=== PATIENT | female | born 1995 | race Caucasian/White ===

== ENCOUNTER 2018-07-14 13:04 | Day surgery (SDC) | payer OTHER ==
[2018-07-14 16:48] VITALS: BMI 37.2
--- NOTE | 2018-07-14 18:05 | PRG ---
DATE OF SERVICE: 07/14/2018 TIME OF EVALUATION: 1420 to 1435 hours. LOCATION: Labor and Delivery in triage A. REASON FOR EVALUATION: This is a patient of Dr. Grant, who is here for pelvic cramps and possible ea rly contractions. HISTORY OF PRESENT ILLNESS: In brief, this is a 23-year-old G1, P0, who is at 38 weeks and 5 days [address] o sees Dr[address] Grant, who last saw him last week and she was about 2 cm at that time. She comes now with increasing pelvic spasms concerning for contractions. She has no vaginal bleeding or ruptured membr anes. She has good movement. She has no other issues. REVIEW OF SYSTEMS: Complete review of systems was checked and otherwise negative unless specified in the HPI. It is important to note that on her review of systems; however, we did document and unc[place] red that she had a history of herpes simplex virus, but she is currently on Valtrex suppression as aidan ortiz has no current symptoms. PAST MEDICAL HISTORY: Otherwise, negative. SURGERIES: Tonsils and adenoids. OB HISTORY: She is a G1, P0. ALLERGIES: None. PHYSICAL EXAMINATION: VITAL SIGNS: Patient's blood pressure is 128/79, pulse is 80s, respirations are 18 and unlabored, aidan ortiz is afebrile. BMI is 37.2. GENERAL: She is in no acute distress. ABDOMEN: Soft and nontender and size consistent with dates. MUSCULOSKELETAL: Cervical examination performed by Iliana, the patient's nurse, was 1.5-2 cm dila evita, about 50% effaced, -1 station, no evidence of rupture. External monitor shows category 1 strip with moderate variability and accelerations. There are no pathological decelerations. There is no real contraction pattern on tocodynamometer. hear t tones are reassuring. ASSESSMENT: This is a 23-year-old G1, P0 at 38 weeks and 5 days with [place] contractions. Th ere is no evidence of PIH for complication. PLAN: 1. No acute need for intervention at this time. 2. I have seen and evaluated the patient at bedside. 3. No acute concerns at this time. 4. The patient is doing well and we have running nonstress test which is reassuring. 5. I have advised the patient to keep her followup appointment with Dr. Grant. 6. I also provided her with Labor and Delivery details.
== END 2018-07-14 14:45 | disposition home or self-care (01) ==
LOC: L&D/OP 13:04
PROVIDERS: ATTEND Family Medicine
DX: O47.1 False labor at or after 37 completed weeks of gestation (principal); Z3A.38 38 weeks gestation of pregnancy
CPT/HCPCS: 99283

== ENCOUNTER 2018-07-23 07:03 | Day surgery (SDC) | payer OTHER ==
[2018-07-23 07:34] VITALS: BP 122/59; TEMP 99.2; BMI 37.2
--- NOTE | 2018-07-23 09:39 | PDOC.EVN ---
Event Note - Event Note Event Note: @ 929: I was asked to place triage orders for Ms Ricci. First arrived with Dr Azevedo. Please see Dr Grant's triage bnotes who saw this patient. these orders inputed by me as courtesy
== END 2018-07-23 09:55 | disposition home or self-care (01) ==
LOC: L&D/OP 07:03
PROVIDERS: ATTEND Family Medicine
DX: O47.9 False labor, unspecified (principal); O99.89 Other specified diseases and conditions complicating pregnancy, childbirth and the puerperium; R10.9 Unspecified abdominal pain
CPT/HCPCS: 99283

== ENCOUNTER 2018-07-24 14:42 | Inpatient (IN) | payer OTHER ==
[2018-07-24] MEDS ORDERED: Sodium Chloride 0.9% (PF) 10 ML VIAL ONE (15:00)
[2018-07-24] MEDS ORDERED: Bupivacaine 0.25% HCL 30 ML VIAL ONE (15:00)
[2018-07-24 15:19] VITALS: BMI 37.2
--- NOTE | 2018-07-24 16:21 | PDOC.LDHP ---
Labor and Delivery H&P Chief complaint: loss of fluid HPI: 23 y/o G1 at 40w0d, patient of Dr. Grant, presents with ctx. Is scheduled for induction tonight. Denies VB, LOF, or decreased FM. ROS neg for HEENT, cv, pulm, gi, gu, neuro, psych, skin, musculoskeletal or constitutional symptoms other than mentioned above. OB History Details: None Current complications: none Past Medical History: HSV Current medications: pre- vitamins Previous surgical history: none Allergies/Adverse Reactions: Allergies Allergy/AdvReac Type Severity Reaction Status Date / Time No Known Allergies Allergy Verified 07/24/18 15:19 Social history: tobacco use (tobacco use early in but quit) - Physical Exam Vital signs reviewed and normal: yes General: NAD, resting Lungs: nonlabored breathing Abdomen: gravid Extremeties: no edema FHT: category 1 (140s, mod variability, + accels, no decels) [place] contractions every: 3 mins - Vaginal Exam cm dilated: 2 Effacement: 90% Station: -2 - OB Labs GBS: positive Additional Labs: Amnisure negative - Assessment L&D Assessment: term patient in labor - Plan Plan: admit to L&D, GBS antibiotic prophylaxis, informed consent obtained, anesthesia consult for pain management (if desired) -: Dr. Grant notified.
[2018-07-24] MEDS ORDERED: Acetaminophen 500 MG TAB PO PRN (19:08)
[2018-07-24] MEDS ORDERED: Zolpidem Tartrate 5 MG TAB PO PRN (19:08)
[2018-07-24] MEDS ORDERED: Ondansetron HCl/PF 4 MG/2 ML Vial IVP PRN (19:08)
[2018-07-24] MEDS ORDERED: Promethazine HCl 25 MG/ML VIAL IM PRN (19:08)
[2018-07-24] MEDS ORDERED: Penicillin G Potassium 5 MILL.UNITS VIAL ONE (19:09)
[2018-07-24] MEDS ORDERED: Diphenoxylate HCl/Atropine Tablet PO PRN ×2 (19:10)
[2018-07-24] MEDS ORDERED: Methylergonovine 0.2 MG/ML VIAL IM PRN (19:10)
[2018-07-24] MEDS ORDERED: Ibuprofen 800 MG TAB PO PRN (19:10)
[2018-07-24] MEDS ORDERED: Misoprostol 200 MCG TAB PR PRN (19:10)
[2018-07-24] MEDS ORDERED: Carboprost 250 MCG/ML AMP IM PRN (19:10)
[2018-07-24] MEDS ORDERED: Lidocaine 1% (PF) 30 ML VIAL SC PRN (19:10)
[2018-07-24] MEDS ORDERED: HYDROcodone/Acetaminophen 5/325 mg Tablet PO PRN ×2 (19:10)
[2018-07-24] MEDS ORDERED: NS / Oxytocin 40 units/1000ml 1,000 ML IV PRN (19:10)
[2018-07-24] MEDS ORDERED: NS w/ Oxytocin 10 units 500 ML IV SCH (19:15)
[2018-07-24] MEDS ORDERED: Penicillin G Potassium 5 MILL.UNITS in Sodium Chloride 0.9% 100 ML IVPB SCH (19:15)
[2018-07-24 19:23] LABS: Hemoglobin 11.1 g/dL (12.0-16.0); Mean Corpuscular HGB CONC 32.4 g/dL (32.0-36.0); Mean Corpuscular Hemoglobin 27.5 pg (27.0-31.0); Mean Corpuscular Volume 84.8 fL (78.0-98.0); Mean Platelet Volume 7.5 fL (7.4-10.4); Platelet Count 388 thou/uL (130-400); RBC Distribution Width 13.5 % (11.5-14.5); Red Blood Cell (RBC) Count 4.06 mill/uL (4.20-5.40); White Blood Cell (WBC) Count 28.9 thou/uL (4.8-10.8)
[2018-07-24 19:48] LABS: Syphilis Antibody Nonreactive (Nonreactive); Syphilis Antibody Index 0.09 S/CO (<1.00 Non-Reactive)
[2018-07-24 19:49] LABS: HBSAg Index 0.21 S/CO (0-0.99); Hep B Surf Ag Non-Reactive S/CO (NonReactive)
[2018-07-24] MEDS: Penicillin G 2.5 MILL.units 2.5 MILL.UNITS in Premix Bag 1 BAG IVPB SCH (23:36)
[2018-07-24] MEDS: Lactated Ringer's 1,000 ML IV SCH (23:36)
[2018-07-25] MEDS: Butorphanol Tartrate 1 MG/ML VIAL SLOW IVP PRN ×2 (01:12→03:04)
[2018-07-25] MEDS: Penicillin G 2.5 MILL.units 2.5 MILL.UNITS in Premix Bag 1 BAG IVPB SCH ×2 (04:04→07:55)
[2018-07-25] MEDS ORDERED: Bupivacaine 0.5% 20 ML, fentaNYL Citrate/PF 400 MCG in Sodium Chloride 0.9% 72 ML EPIDURAL SCH (04:15)
[2018-07-25] MEDS ORDERED: DISCONTINUE ALL PREVIOUS NARCOTICS FS SCH (04:15)
[2018-07-25] MEDS: Lactated Ringer's 1,000 ML IV SCH ×2 (05:47→09:21)
[2018-07-25] MEDS ORDERED: ePHEDrine/0.9% NaCl/PF SYRINGE 50 mg/10 ml SLOW IVP PRN (06:05)
[2018-07-25] MEDS ORDERED: Promethazine HCl 25 MG/ML VIAL IM PRN (06:05)
[2018-07-25] MEDS ORDERED: Lactated Ringer's 500 ML IV PRN (06:05)
[2018-07-25] MEDS ORDERED: Acetaminophen 325 MG TAB PO PRN (06:05)
[2018-07-25] MEDS ORDERED: Naloxone HCl 0.4 mg/ml Vial IVP PRN ×2 (06:05)
[2018-07-25] MEDS ORDERED: Eucerin (Mineral Oil/Petrolatum,White) 30 gm Jar TOP PRN (06:05)
[2018-07-25] MEDS ORDERED: Ondansetron HCl/PF 4 MG/2 ML Vial IVP PRN ×2 (06:05→12:02)
[2018-07-25] MEDS ORDERED: diphenhydrAMINE 50 MG/ML VIAL IVP PRN (06:05)
[2018-07-25] MEDS ORDERED: Communication Order-Pharmacy FS SCH (06:15)
[2018-07-25] MEDS ORDERED: fentaNYL Citrate/PF 400 MCG, Bupivacaine 0.5% 20 ML in Sodium Chloride 0.9% 72 ML EPIDURAL SCH (06:15)
[2018-07-25] MEDS ORDERED: Gentamicin Sulfate 80 MG in Premix Bag 1 BAG IVPB SCH (09:15)
[2018-07-25] MEDS: NS / Oxytocin 40 units/1000ml 1,000 ML IV SCH ×2 (11:00→15:41)
[2018-07-25 11:05] LABS: Actual Bicarbonate (HCO3a) 25.6 mEq/L (22-28); Base Excess (BEa) -0.9 mEq/L (-2.0 to +3.0)
[2018-07-25] MEDS ORDERED: Preparation H Ointment 28 GM TUBE PR PRN (12:02)
[2018-07-25] MEDS ORDERED: Lanolin Ointment 7 GM TUBE TOP PRN (12:02)
[2018-07-25] MEDS ORDERED: diphenhydrAMINE 25 MG CAP PO PRN (12:02)
[2018-07-25] MEDS ORDERED: Benzocaine/Menthol 20-0.5% 60 ML CAN TOP PRN (12:02)
[2018-07-25] MEDS ORDERED: HYDROcodone/Acetaminophen 5/325 mg Tablet PO PRN ×2 (12:02)
[2018-07-25] MEDS ORDERED: Milk Of Magnesia 30 ML UDCUP PO PRN (12:02)
[2018-07-25] MEDS ORDERED: Bisacodyl 10 MG SUPP PR PRN (12:02)
[2018-07-25] MEDS: Ibuprofen 800 MG TAB PO SCH ×2 (15:41→22:05)
[2018-07-25] MEDS: Ferrous Sulfate 325 MG TAB PO SCH (17:33)
[2018-07-25] MEDS: Docusate Calcium (SURFAK) 240 MG CAP PO SCH (22:05)
[2018-07-26 05:49] LABS: Hemoglobin 8.8 g/dL (12.0-16.0); Mean Corpuscular HGB CONC 32.5 g/dL (32.0-36.0); Mean Corpuscular Hemoglobin 27.7 pg (27.0-31.0); Mean Corpuscular Volume 85.2 fL (78.0-98.0); Platelet Count 306 thou/uL (130-400); RBC Distribution Width 13.4 % (11.5-14.5); Red Blood Cell (RBC) Count 3.18 mill/uL (4.20-5.40); White Blood Cell (WBC) Count 22.2 thou/uL (4.8-10.8)
[2018-07-26] MEDS: Ibuprofen 800 MG TAB PO SCH ×3 (06:16→20:11)
[2018-07-26] MEDS: Penicillin G 2.5 MILL.units 2.5 MILL.UNITS in Premix Bag 1 BAG IVPB SCH (07:41)
[2018-07-26] MEDS ORDERED: Prenatal Vitamin 1 TAB PO SCH (09:00)
[2018-07-26] MEDS: Ferrous Sulfate 325 MG TAB PO SCH ×2 (09:22→18:17)
[2018-07-26] MEDS: Docusate Calcium (SURFAK) 240 MG CAP PO SCH ×2 (09:23→20:11)
[2018-07-26 20:31] VITALS: BP 137/77; TEMP 98.2
[2018-07-27] MEDS: Ibuprofen 800 MG TAB PO SCH (06:08)
== END 2018-07-27 16:30 | disposition home or self-care (01) | DRG 805 ==
LOC: L&D/OP 14:42 → L&D 22:13 → 3SE 07-25 14:23
PROVIDERS: ADMIT Family Medicine; ATTEND Family Medicine
PROC: 10E0XZZ Delivery of Products of Conception, External Approach (ICD-10-PCS; principal; 2018-07-24)
PROC: 3E033VJ Introduction of Other Hormone into Peripheral Vein, Percutaneous Approach (ICD-10-PCS; 2018-07-24)
PROC: 0HQ9XZZ Repair Perineum Skin, External Approach (ICD-10-PCS; 2018-07-24)
DX: O99.824 Streptococcus B carrier state complicating childbirth (principal); O41.1230 Chorioamnionitis, third trimester, not applicable or unspecified; Z37.0 Single live birth; O98.52 Other viral diseases complicating childbirth; Z3A.40 40 weeks gestation of pregnancy; B00.9 Herpesviral infection, unspecified; Z79.899 Other long term (current) drug therapy; O77.0 Labor and delivery complicated by meconium in amniotic fluid; O70.0 First degree perineal laceration during delivery; O76 Abnormality in fetal heart rate and rhythm complicating labor and delivery; O69.81X0 Labor and delivery complicated by cord around neck, without compression, not applicable or unspecified
CPT/HCPCS: 36415; 51702; 76815; 82805; 85027; 86780; 86850; 86900; 86901; 87340; 88307; 99285; J0595; J1580; J2001; J2540; J3010; J3490; J7050; S0020